=== PATIENT | female | born 1955 | race Asian ===

== ENCOUNTER 2017-06-18 05:59 | Inpatient (IN) | payer OTHER ==
[2017-06-17 11:39] VITALS: BMI 25.4
--- NOTE | 2017-06-17 23:18 | PREOPHP ---
DATE OF ADMISSION: 06/18/2017 HISTORY OF PRESENT ILLNESS: Patient was originally seen in the office and was diagnosed with a left lumbar spine sacral 1 disk herniation, with mechanical low back pain. Conservative management was offered to the patient in the form of lumbar epidural injections x4. Unfortunately, patient did not improve. Patient also saw Pain Management and Physical Therapy. Condition was getting worse. Patient wanted something more definitive to be done. The only option left at this point was surgical intervention in the form of lumbar 5 - sacral 1, left-sided laminotomy, with a microdiscectomy. The procedure was described to the patient in great detail. Complications were explained. Patient agreed, wants to proceed. PAST MEDICAL HISTORY: History of high blood pressure, diabetes, hyperlipidemia. PAST SURGICAL HISTORY: Unremarkable. SOCIAL HISTORY: Denies use of drugs, alcohol or tobacco. ALLERGIES: NONE. MEDICATIONS: Taken at home, which are found in the history, are unremarkable. REVIEW OF SYSTEMS: Additional 10-point review of systems conducted. Pertinent positives in HPI, otherwise negative. PHYSICAL EXAMINATION: GENERAL: Patient is awake, alert, oriented. Follows commands. Moves upper as well as the lower extremities. HEENT: Unremarkable. LUNGS: No dyspnea. No tachypnea. CARDIAC: No JVD. No pedal edema. ABDOMEN: Soft, without guarding. NEUROLOGIC: He is awake, alert, oriented. Follows commands. GCS of 15. EXTREMITIES: Upper extremity examination: Moves both sides equally at the shoulders, elbows, wrists. Lower extremity examination: Flexion and extension of lumbar spine causes low back discomfort. He has positive leg raise on the left side. Strength is equal on both sides. Sensation is intact. LABORATORY: MRI of the lumbar spine shows the lumbar 5 - sacral 1, left-sided disk herniation, with compression of the left L5-S1 nerve roots. RECOMMENDATION: Is for patient to undergo surgical intervention with lumbar 5 - sacral 1 left-sided laminotomy, with microdiscectomy. The procedure, complications were discussed with the patient extensively, including infection, bleeding, permanent nerve damage, stroke, heart attack, and even . Patient was agreeable and wants to proceed. Patient was admitted to the hospital thereafter for further care and management. Dictated By: Sy De La Vega MD /pj/cody /Document#: [id number] CRUZ
[2017-06-18] VITALS (30 sets, daily range): BP systolic 94–131; BP diastolic 49–78; PULSE 68–88; RESP 16–20; Ht 160 cm; Wt 69.1 kg
[~2017-06-18] VITALS: Ht 160 cm; Wt 69.1 kg
[2017-06-18] MEDS ORDERED: GELATIN SIZE 100 SPONGE ONE (06:46)
[2017-06-18] MEDS ORDERED: POLYMYXIN/BACITRACIN 1L IRRIG ONE (06:47)
[2017-06-18] MEDS ORDERED: THROMBIN 5000 UNIT VIAL ONE (06:47)
[2017-06-18] MEDS ORDERED: PROPOFOL 100 ML ONE (06:48)
[2017-06-18] MEDS ORDERED: MIDAZOLAM 1 MG/ML 2 ML INJ ONE (06:48)
[2017-06-18] MEDS ORDERED: PROPOFOL 20 ML ONE (06:48)
[2017-06-18] MEDS ORDERED: FENTAnyl 50 MCG/ML VIAL ONE ×2 (06:48→08:06)
[2017-06-18] MEDS ORDERED: LIDOCAINE 2% (SDV) 5 ML INJ ONE (06:48)
[2017-06-18] MEDS ORDERED: CEFAZOLIN 1 GM INJ ONE (06:52)
[2017-06-18] MEDS ORDERED: ROCURONIUM 50 MG INJ ONE (07:00)
[2017-06-18] MEDS ORDERED: GABA300S PO (07:18)
[2017-06-18] MEDS ORDERED: LANT3I SC (07:18)
[2017-06-18] MEDS ORDERED: TRAM50TA2 PO (07:18)
[2017-06-18] MEDS ORDERED: METF1000 PO (07:18)
[2017-06-18] MEDS ORDERED: ZOC10 PO (07:18)
[2017-06-18] MEDS ORDERED: OMEG-135 PO (07:18)
[2017-06-18] MEDS ORDERED: BENA20TA48 PO (07:18)
[2017-06-18] MEDS ORDERED: [UNRECOGNIZED DRUG - CODE] PO (07:18)
[2017-06-18] MEDS ORDERED: LIDOCAINE 1%/EPI 30 ML INJ ONE (07:28)
[2017-06-18] MEDS ORDERED: LIDOCAINE 0.5% (MDV) 50 ML INJ ONE (07:28)
[2017-06-18] MEDS ORDERED: ONDANSETRON 4 MG INJ IV PRN ×2 (08:00→09:30)
[2017-06-18] MEDS ORDERED: DEXTROSE 5%-LR 1,000 ML IV SCH (08:00)
[2017-06-18] MEDS ORDERED: METOCLOPRAMIDE 10 MG INJ ONE (08:03)
[2017-06-18] MEDS ORDERED: ONDANSETRON 4 MG INJ ONE (08:03)
[2017-06-18] MEDS ORDERED: FAMOTIDINE 20 MG INJ ONE (08:03)
[2017-06-18] MEDS ORDERED: DEXAMETHASONE 4 MG/ML 1 ML INJ ONE (08:03)
[2017-06-18] MEDS ORDERED: SUGAMMADEX SODIUM 200 MG/2 ML VIAL IV ONE (08:31)
[2017-06-18] MEDS ORDERED: KETOROLAC 30 MG INJ ONE (08:33)
--- NOTE | 2017-06-18 08:50 | OPR ---
Date/Time of Note Date/Time of Note DATE: 06/18/17 TIME: 08:46 Operative Report Preoperative Diagnosis left lumbar 5-sacral 1 disk herniation Postoperative Diagnosis left lumbar 5-sacral 1 disk herniation Operation/Procedure Performed left l5-s1 laminotomy with microdiskectomy Surgeon CAROL WALLACE MD [employer] NANCY JONES PAC Anesthesia Type: general Anesthesiologist: JERE ROGERS Estimated Blood Loss: 50 - 100 ml's Transfusion none Specimen YES Grafts/Implants none Complications none Procedure Description LEFT SIDED LUMBAR 5-SACRAL 1 LAMINOTOMY WITH MICRODISKECTOMY CAROL WALLACE MD Jun 18, 2017 08:50
[2017-06-18] MEDS ORDERED: ACETAMINOPHEN 1000MG/100ML IV 100 ML IVPB PRN (09:30)
[2017-06-18] MEDS ORDERED: MEPERIDINE 25 MG INJ IV PRN (09:30)
[2017-06-18] MEDS ORDERED: OXYCODONE/ACETAMINOPHEN (5/325) TAB PO PRN ×2 (09:30)
[2017-06-18] MEDS ORDERED: LABETALOL HCL 20MG INJ IV PRN (09:30)
[2017-06-18] MEDS ORDERED: FENTAnyl 50 MCG/ML VIAL IV PRN ×3 (09:30)
[2017-06-18] MEDS: HYDROCODONE/APAP (10/325) TAB PO PRN ×3 (12:02→22:32)
[2017-06-18] MEDS: CEFAZOLIN 1 GM/50 ML (PMX) 50 ML IVPB SCH ×2 (13:35→22:22)
[2017-06-18] MEDS ORDERED: DEXTROSE 50% 50 ML SYRINGE IV PRN ×2 (14:00)
[2017-06-18] MEDS ORDERED: GLUCAGON 1 MG INJ IM PRN (14:00)
[2017-06-18] MEDS ORDERED: GLUCOSE GEL 15 GRAM TUBE BUCCAL PRN (14:00)
[2017-06-18] MEDS ORDERED: GLUCOSE GEL 15 GRAM TUBE PO PRN ×2 (14:00)
[2017-06-18] MEDS ORDERED: CEPASTAT LOZENGE MT PRN (14:00)
--- NOTE | 2017-06-18 16:51 | RADRPT ---
PROCEDURE: XR fluoro guidance CLINICAL INDICATION: L5-S1 laminectomy with microdiskectomy TECHNIQUE: Fluoroscopy performed. 1 image submitted. Total fluoro time: 4.8 seconds COMPARISON: None. FINDINGS: No hardware/instruments visualized. See operative/procedure report for details. IMPRESSION: Fluoroscopic guidance for lumbar spine surgery. RPTAT: VV .Adiel Salcido MD, MD Date Time Electronically viewed and signed by .Adiel Salcido MD, on 06/18/2017 10:27 .O/
--- NOTE | 2017-06-18 16:55 | HP ---
DATE OF ADMISSION: 06/18/2017 HISTORY OF PRESENT ILLNESS: The patient is a 62-year-old very pleasant female with past medical his tory positive for hypertension, hyperlipidemia, diabetes mellitus and chronic back pain. The patien t has been experiencing lower back pain with radiation to the left lower extremity. On further eval uation, the patient appeared to have left lumbosacral disk herniation and patient was evaluated by Odell De La Vega in neurosurgery consultation. The patient also obtained a clearance from ____ cardio logtaryn for elective neurosurgery and patient was brought to the hospital and underwent a left L5-S1 la minotomy with microdiscectomy by Dr. De La Vega. The patient experienced moderate pain and complaints of ____. Patient denies any chest pain, denies any nausea, vomiting, diarrhea. Patient is admitted for further evaluation and management. PAST MEDICAL HISTORY: Positive for diabetes, hypertension, hyperlipidemia and chronic back pain. PAST SURGICAL HISTORY: Patient had a right upper extremity I and D of the abscess 1 year ago. FAMILY HISTORY: Patient had a mother with diabetes mellitus. SOCIAL HISTORY: Patient lives at home with her and family. The patient denies any tobacco use, denies any alcohol use, denies any illicit drug use. ALLERGIES: NO KNOWN ALLERGIES. HOME MEDICATIONS: 1. Benazepril. 2. Lantus. 3. Metformin. 4. Tramadol. 5. Acetaminophen. 6. Gabapentin. 7. [place] 3 fatty acid fish oil. 8. Simvastatin. REVIEW OF SYSTEMS: A 12-point review of systems is negative unless what mentioned in the HPI. PHYSICAL ASSESSMENT: GENERAL: Well-developed, well-nourished female in no acute distress. VITAL SIGNS: Temperature 98.6, pulse is 70, blood pressure 118/62, respiratory rate 20, oxygen satu ration 97% on 2 liters nasal cannula. HEENT: Head is atraumatic, normocephalic. Pupils equal, round, reactive to light and accommodation . Oral mucosa is pink and moist. NECK: Supple, no cervical lymphadenopathy, no thyromegaly. CHEST: Lungs clear bilaterally. There are no rhonchi, wheezes, rales noted. CARDIOVASCULAR: Normal S1, S2. No murmurs, gallops, clicks, rubs noted. ABDOMEN: Round, soft, nondistended, nontender. There is no guarding, no rebound tenderness. EXTREMITIES: No edema, clubbing, cyanosis. Pulses equal bilaterally 2+. Low back status post surg faith. SKIN: No apparent rash, petechiae noted. NEUROLOGIC: Patient is awake, alert and oriented x4. No focal deficits noted. Motor strength 5/5 in all extremities. PRESURGERY LABORATORY DATA: Reviewed. ASSESSMENT AND PLAN: 1. Acute on chronic back pain with radiation to left lower extremity with left lumbosacral disk her niation status post left L5-S1 laminotomy with microdiscectomy by Dr. De La Vega on 06/18/2017. 2. Continue postoperative antibiotics. Continue [place] and morphine p.r.n. for pain and Zofran p.r. n. for nausea. 3. Diabetes mellitus type 2. Continue NovoLog per mild algorithm sliding scale 1800 ADA 2 g sodium , low fat diet. Continue Lantus. 4. Hypertension. Continue lisinopril. Hydralazine p.r.n. for systolic blood pressure above 170. 5. Hyperlipidemia. We will resume statin. 6. Continue sequential compression device for deep venous thrombosis prophylaxis. Pepcid for pepti c ulcer disease prophylaxis. Follow up neurosurgery recommendations. Further recommendations based on clinical course. Plan of care discussed with Dr. Poole. Dictated By: MARJ FUNEZ [employer] for VERNON POOLE MD SR/NTS Conf#: [id number] DID#: [id number]
[2017-06-18] MEDS: LACTATED RINGER'S 1,000 ML IV SCH (17:50)
[2017-06-18] MEDS: INSULIN ASPART [NOVOLOG] 3 ML PEN SC SCH ×2 (17:51→20:34)
[2017-06-18] MEDS ORDERED: LACTATED RINGER'S 1,000 ML IV SCH (20:00)
[2017-06-18] MEDS: BENAZEPRIL 20 MG TAB PO SCH (20:26)
[2017-06-18] MEDS ORDERED: INSULIN GLARGINE [LANtus] 3 ML PEN SC SCH (21:00)
[2017-06-19] MEDS: ACCU-CHEK XX SCH (01:51)
[2017-06-19 02:30] VITALS: BP 104/51; RESP 20
[2017-06-19] MEDS: LACTATED RINGER'S 1,000 ML IV SCH ×3 (03:29→21:11)
[2017-06-19 03:34] VITALS: BP 100/52; PULSE 77; RESP 20
[2017-06-19] MEDS: HYDROCODONE/APAP (10/325) TAB PO PRN ×4 (03:47→21:07)
[2017-06-19] MEDS: CEFAZOLIN 1 GM/50 ML (PMX) 50 ML IVPB SCH ×2 (05:34→14:00)
[2017-06-19 06:30] LABS: BASOPHILS % 0.1 % (0.0-2.0); EOSINOPHILS % 0.1 % (0.0-7.0); HEMATOCRIT 32.9 % (37.0-47.0); HEMOGLOBIN 10.5 g/dl (12.0-16.0); LYMPHOCYTES # 4.6 10^3/ul (0.8-2.9); LYMPHOCYTES % 31.9 % (15.0-51.0); MEAN CORPUSCULAR HEMOGLOBIN 25.9 pg (29.0-33.0); MEAN CORPUSCULAR HGB CONC 31.9 g/dl (32.0-37.0); MEAN CORPUSCULAR VOLUME 81.2 fl (82.0-101.0); MONOCYTES % 6.9 % (0.0-11.0); NEUTROPHIL # 8.7 10^3/ul (1.6-7.5); NEUTROPHILS % 60.7 % (39.0-77.0); PLATELET COUNT 300 10^3/UL (140-415); RED BLOOD COUNT 4.05 10^6/ul (4.20-5.40); RED CELL DISTRIBUTION WIDTH 13.3 % (11.5-14.5); WHITE BLOOD COUNT 14.3 10^3/ul (4.8-10.8)
[2017-06-19 07:07] LABS: CALCIUM 8.9 mg/dl (8.4-10.2); CREATININE 0.67 mg/dl (0.44-1.00)
[2017-06-19 07:50] VITALS: BP 109/57; RESP 18
[2017-06-19] MEDS: INSULIN ASPART [NOVOLOG] 3 ML PEN SC SCH ×4 (07:50→21:00)
[2017-06-19] MEDS: BENAZEPRIL 20 MG TAB PO SCH ×2 (09:08→21:00)
--- NOTE | 2017-06-19 15:34 | PN ---
Date/Time of Note Date/Time of Note DATE: 06/19/17 TIME: 15:31 Assessment/Plan VTE Prophylaxis VTE Prophylaxis Intervention: SCD's Lines/Catheters IV Catheter Type (from Nrsg): Peripheral IV Urinary Cath still in place: No Reason Cath still needed: urinary retention Assessment/Plan Chief Complaint/Hosp Course Patient's pain is well controlled, patient remains hemodynamically stable Problems: Assessment/Plan - Acute on chronic back pain with radiation to left lower extremity with left lumbosacral disk herniation status post left L5-S1 laminotomy with microdiscectomy by Dr. De La Vega on 06/18/2017. Continue [place] and morphine p.r.n. for pain and Zofran p.r.n. for nausea. - Diabetes mellitus type 2. Will adjust Lantus and pre-meal now NovoLog . - Hypertension. Continue lisinopril. Hydralazine p.r.n. for systolic blood pressure above 170. - Hyperlipidemia. Further recommendations based on clinical course. Plan of care discussed with Dr. Martinez. Exam/Review of Systems Vital Signs Vitals Vital Signs Date Time Temp Pulse Resp B/P Pulse Ox O2 Delivery O2 Flow Rate FiO2 06/19/17 07:50 98.1 87 18 109/57 99 06/19/17 03:34 Nasal Cannula 2.0 Intake and Output 06/18/17 06/18/17 06/19/17 14:59 22:59 06:59 Intake Total 750 ml 1090 ml 1250 ml Output Total 120 ml 1400 ml Balance 630 ml -310 ml 1250 ml Exam Constitutional: alert, oriented Neck: supple Respiratory: normal air movement Cardiovascular: nl pulses Gastrointestinal: non-tender, soft Musculoskeletal: nl extremities to inspection, other (Status post low back surgery) Extremities: normal pulses Results Result Diagram: 06/19/17 0508 06/19/17 0508 Results 24 hrs Laboratory Tests Test 06/18/17 17:49 06/18/17 20:29 06/19/17 05:08 06/19/17 07:37 Bedside Glucose 97 103 108 White Blood Count 14.3 H Red Blood Count 4.05 L Hemoglobin 10.5 L Hematocrit 32.9 L Mean Corpuscular Volume 81.2 L Mean Corpuscular Hemoglobin 25.9 L Mean Corpuscular Hemoglobin Concent 31.9 L Red Cell Distribution Width 13.3 Platelet Count 300 Mean Platelet Volume 11.0 H Neutrophils % 60.7 Lymphocytes % 31.9 Monocytes % 6.9 Eosinophils % 0.1 Basophils % 0.1 Nucleated Red Blood Cells % 0.0 Neutrophils # 8.7 H Lymphocytes # 4.6 H Monocytes # 1.0 H Eosinophils # 0.0 Basophils # 0.0 Nucleated Red Blood Cells # 0.0 Sodium Level 136 Potassium Level 4.0 Chloride Level 100 Carbon Dioxide Level 30 Anion Gap 10 Blood Urea Nitrogen 13 Creatinine 0.67 Glucose Level 45 *L Calcium Level 8.9 Test 06/19/17 09:07 06/19/17 11:29 06/19/17 12:11 06/19/17 13:06 Bedside Glucose 92 62 L 77 84 Medications Medications Current Medications Morphine Sulfate (morphine) 2 mg Q4H PRN IV severe pain; Start 06/18/17 at 08: 00 Acetaminophen/ Hydrocodone Bitart ([place] (10/325)) 1 tab Q4H PRN PO PAIN Last administered on 06/19/17 15:03; Admin Dose 1 TAB; Start 06/18/17 at 08:00 Ondansetron HCl (Zofran Inj) 4 mg Q6H PRN IV NAUSEA AND/OR VOMITING; Start at 08:00 Phenol (Cepastat Lozenge) 1 lozenge Q1H PRN MT SORE THROAT Last administered on 06/18/17 20:45; Admin Dose 1 LOZENGE; Start 06/18/17 at 14:00 Benazepril HCl (Lotensin) 20 mg BID PO Last administered on 06/19/17 09:08; Admin Dose 20 MG; Start 06/18/17 at 21:00 Insulin Glargine (Lantus) 52 unit QHS SC Last administered on 06/18/17 20:34 ; Admin Dose 52 UNIT; Start 06/18/17 at 21:00 Diagnostic Test (Pha) (Accu-Chek) 1 ea 02 XX ; Start 06/19/17 at 02:00 Miscellaneous Information 1 ea NOTE XX ; Start 06/18/17 at 14:00 Glucose (Glutose) 15 gm Q15M PRN PO DECREASED GLUCOSE; Start 06/18/17 at 14:00 Glucose (Glutose) 22.5 gm Q15M PRN PO DECREASED GLUCOSE; Start 06/18/17 at 14: 00 Dextrose (D50w Syringe) 25 ml Q15M PRN IV DECREASED GLUCOSE; Start 06/18/17 at 14:00 Dextrose (D50w Syringe) 50 ml Q15M PRN IV DECREASED GLUCOSE; Start 06/18/17 at 14:00 Glucagon (Glucagen) 1 mg Q15M PRN IM DECREASED GLUCOSE; Start 06/18/17 at 14: 00 Glucose 15 gm 15 gm Q15M PRN BUCCAL DECREASED GLUCOSE; Start 06/18/17 at 14:00 Lactated Ringer's (Lr) 1,000 ml @ 100 mls/hr Q10H IV Last administered on 03:29; Admin Dose 100 MLS/HR; Start 06/18/17 at 16:50 MARJ FUNEZ Jun 19, 2017 15:34
--- NOTE | 2017-06-19 15:42 | CONS ---
Date/Time of Note Date/Time of Note DATE: 06/19/17 TIME: 15:39 Assessment/Plan Assessment/Plan Additional Assessment/Plan awake/alert/follows/moves all left l5/s1 laminotomy with microdiskectomy good post op progress wound looks good pt/ot pt may go home in am instructions given Consultation Date/Type/Reason Admit Date/Time Jun 18, 2017 at 05:59 Initial Consult Date Exam/Review of Systems Vital Signs Vitals Vital Signs Date Time Temp Pulse Resp B/P Pulse Ox O2 Delivery O2 Flow Rate FiO2 06/19/17 07:50 98.1 87 18 109/57 99 06/19/17 03:34 Nasal Cannula 2.0 Intake and Output 06/18/17 06/18/17 06/19/17 15:00 23:00 07:00 Intake Total 750 ml 1090 ml 1250 ml Output Total 120 ml 1400 ml Balance 630 ml -310 ml 1250 ml Results Result Diagram: 06/19/17 0508 06/19/17 0508 Results 24 hrs Laboratory Tests Test 06/18/17 17:49 06/18/17 20:29 06/19/17 05:08 06/19/17 07:37 Bedside Glucose 97 103 108 White Blood Count 14.3 H Red Blood Count 4.05 L Hemoglobin 10.5 L Hematocrit 32.9 L Mean Corpuscular Volume 81.2 L Mean Corpuscular Hemoglobin 25.9 L Mean Corpuscular Hemoglobin Concent 31.9 L Red Cell Distribution Width 13.3 Platelet Count 300 Mean Platelet Volume 11.0 H Neutrophils % 60.7 Lymphocytes % 31.9 Monocytes % 6.9 Eosinophils % 0.1 Basophils % 0.1 Nucleated Red Blood Cells % 0.0 Neutrophils # 8.7 H Lymphocytes # 4.6 H Monocytes # 1.0 H Eosinophils # 0.0 Basophils # 0.0 Nucleated Red Blood Cells # 0.0 Sodium Level 136 Potassium Level 4.0 Chloride Level 100 Carbon Dioxide Level 30 Anion Gap 10 Blood Urea Nitrogen 13 Creatinine 0.67 Glucose Level 45 *L Calcium Level 8.9 Test 06/19/17 09:07 06/19/17 11:29 06/19/17 12:11 06/19/17 13:06 Bedside Glucose 92 62 L 77 84 Medications Medications Current Medications Morphine Sulfate (morphine) 2 mg Q4H PRN IV severe pain; Start 06/18/17 at 08: 00 Acetaminophen/ Hydrocodone Bitart ([place] (10/)) 1 tab Q4H PRN PO PAIN Last administered on 06/19/17 15:03; Admin Dose 1 TAB; Start 06/18/17 at 08:00 Ondansetron HCl (Zofran Inj) 4 mg Q6H PRN IV NAUSEA AND/OR VOMITING; Start at 08:00 Phenol (Cepastat Lozenge) 1 lozenge Q1H PRN MT SORE THROAT Last administered on 06/18/17 20:45; Admin Dose 1 LOZENGE; Start 06/18/17 at 14:00 Benazepril HCl (Lotensin) 20 mg BID PO Last administered on 06/19/17 09:08; Admin Dose 20 MG; Start 06/18/17 at 21:00 Diagnostic Test (Pha) (Accu-Chek) 1 ea 02 XX ; Start 06/19/17 at 02:00 Miscellaneous Information 1 ea NOTE XX ; Start 06/18/17 at 14:00 Glucose (Glutose) 15 gm Q15M PRN PO DECREASED GLUCOSE; Start 06/18/17 at 14:00 Glucose (Glutose) 22.5 gm Q15M PRN PO DECREASED GLUCOSE; Start 06/18/17 at 14: 00 Dextrose (D50w Syringe) 25 ml Q15M PRN IV DECREASED GLUCOSE; Start 06/18/17 at 14:00 Dextrose (D50w Syringe) 50 ml Q15M PRN IV DECREASED GLUCOSE; Start 06/18/17 at 14:00 Glucagon (Glucagen) 1 mg Q15M PRN IM DECREASED GLUCOSE; Start 06/18/17 at 14: 00 Glucose 15 gm 15 gm Q15M PRN BUCCAL DECREASED GLUCOSE; Start 06/18/17 at 14:00 Lactated Ringer's (Lr) 1,000 ml @ 100 mls/hr Q10H IV Last administered on 03:29; Admin Dose 100 MLS/HR; Start 06/18/17 at 16:50 Linagliptin (Tradjenta) 5 mg DAILY PO ; Start 06/19/17 at 16:00 Insulin Glargine (Lantus) 17 unit QHS SC ; Start 06/19/17 at 21:00 NANCY JONES PA-C Jun 19, 2017 15:42
[2017-06-19] MEDS: LINAGLIPTIN 5 MG TABLET PO SCH (16:00)
[2017-06-19] MEDS ORDERED: SOD CHLORIDE 0.9% 1,000 ML IV ONE (16:30)
[2017-06-19 19:55] VITALS: BP 112/55; RESP 18
[2017-06-19] MEDS ORDERED: INSULIN GLARGINE [LANtus] 3 ML PEN SC SCH (21:00)
[2017-06-19] MEDS: CYCLOBENZAPRINE 10 MG TAB PO SCH (21:10)
[2017-06-20 01:45] VITALS: BP 149/58; RESP 18
[2017-06-20] MEDS: ACCU-CHEK XX SCH (02:00)
[2017-06-20] MEDS: morphine 2 MG INJ IV PRN ×4 (02:15→20:27)
[2017-06-20 05:30] LABS: BASOPHILS % 0.2 % (0.0-2.0); EOSINOPHILS % 0.2 % (0.0-7.0); HEMATOCRIT 33.1 % (37.0-47.0); HEMOGLOBIN 10.5 g/dl (12.0-16.0); LYMPHOCYTES # 2.8 10^3/ul (0.8-2.9); MEAN CORPUSCULAR HEMOGLOBIN 26.1 pg (29.0-33.0); MEAN CORPUSCULAR HGB CONC 31.7 g/dl (32.0-37.0); MEAN CORPUSCULAR VOLUME 82.1 fl (82.0-101.0); MEAN PLATELET VOLUME 10.7 fl (7.4-10.4); MONOCYTES % 8.7 % (0.0-11.0); NEUTROPHIL # 7.4 10^3/ul (1.6-7.5); NEUTROPHILS % 65.5 % (39.0-77.0); PLATELET COUNT 268 10^3/UL (140-415); RED BLOOD COUNT 4.03 10^6/ul (4.20-5.40); RED CELL DISTRIBUTION WIDTH 13.5 % (11.5-14.5); WHITE BLOOD COUNT 11.3 10^3/ul (4.8-10.8)
[2017-06-20 06:05] LABS: CREATININE 0.62 mg/dl (0.44-1.00)
[2017-06-20] MEDS: LACTATED RINGER'S 1,000 ML IV SCH ×2 (07:55→18:01)
[2017-06-20 08:10] VITALS: BP 117/56; RESP 18
[2017-06-20] MEDS: LINAGLIPTIN 5 MG TABLET PO SCH ×2 (09:00→11:14)
[2017-06-20] MEDS: INSULIN ASPART [NOVOLOG] 3 ML PEN SC SCH ×4 (09:30→20:42)
[2017-06-20] MEDS: CYCLOBENZAPRINE 10 MG TAB PO SCH ×3 (09:45→20:23)
[2017-06-20] MEDS: BENAZEPRIL 20 MG TAB PO SCH ×2 (09:47→20:24)
--- NOTE | 2017-06-20 13:34 | PN ---
Date/Time of Note Date/Time of Note DATE: 06/20/17 TIME: 13:18 Assessment/Plan VTE Prophylaxis VTE Prophylaxis Intervention: other Lines/Catheters IV Catheter Type (from Nrsg): Peripheral IV Urinary Cath still in place: No Assessment/Plan Assessment/Plan - Acute on chronic back pain with radiation to left lower extremity with left lumbosacral disk herniation status post left L5-S1 laminotomy with microdiscectomy on 06/18/2017. - per Dr. De La Vega - Continue [place] and morphine p.r.n. for pain and Zofran p.r.n. for nausea. - Diabetes mellitus type 2. Will adjust Lantus and pre-meal now NovoLog . - Hypertension. Continue lisinopril. Hydralazine p.r.n. for systolic blood pressure above 170. - Hyperlipidemia. Further recommendations based on clinical course. Plan of care discussed with Dr. Martinez. Subjective 24 Hr Interval Summary Free Text/Dictation -BS dropped last nigt, stable now - slightly febrile -c/o back pain, refusing for norco - tolerating diet Respiratory: no complaints Cardiovascular: no complaints Gastrointestinal: no complaints Genitourinary: no complaints Musculoskeletal: back pain Neurologic: no complaints Exam/Review of Systems Vital Signs Vitals Vital Signs Date Time Temp Pulse Resp B/P Pulse Ox O2 Delivery O2 Flow Rate FiO2 06/20/17 08:10 99.6 89 18 117/56 98 06/19/17 03:34 Nasal Cannula 2.0 Intake and Output 06/19/17 06/19/17 06/20/17 15:00 23:00 07:00 Intake Total 500 ml 2600 ml Output Total 2000 ml 2600 ml Balance -1500 ml 0 ml Exam Constitutional: alert, well developed Respiratory: clear to auscultation, diminished breath sounds Cardiovascular: nl pulses Gastrointestinal: non-tender, soft Musculoskeletal: range of motion Extremities: normal pulses Results Result Diagram: 06/20/17 0447 06/20/17 0447 Results 24 hrs Laboratory Tests Test 06/19/17 16:05 06/19/17 17:52 06/19/17 21:14 06/20/17 04:47 Bedside Glucose 139 83 88 White Blood Count 11.3 #H Red Blood Count 4.03 L Hemoglobin 10.5 L Hematocrit 33.1 L Mean Corpuscular Volume 82.1 Mean Corpuscular Hemoglobin 26.1 L Mean Corpuscular Hemoglobin Concent 31.7 L Red Cell Distribution Width 13.5 Platelet Count 268 Mean Platelet Volume 10.7 H Neutrophils % 65.5 Lymphocytes % 25.0 Monocytes % 8.7 Eosinophils % 0.2 Basophils % 0.2 Nucleated Red Blood Cells % 0.0 Neutrophils # 7.4 Lymphocytes # 2.8 Monocytes # 1.0 H Eosinophils # 0.0 Basophils # 0.0 Nucleated Red Blood Cells # 0.0 Sodium Level 136 Potassium Level 4.0 Chloride Level 99 Carbon Dioxide Level 29 Anion Gap 12 Blood Urea Nitrogen 9 Creatinine 0.62 Glucose Level 45 *L Calcium Level 9.0 Test 06/20/17 06:28 06/20/17 06:44 06/20/17 06:59 06/20/17 09:16 Bedside Glucose 49 *L 104 173 101 Test 06/20/17 13:16 Bedside Glucose 91 Medications Medications Current Medications Morphine Sulfate (morphine) 2 mg Q4H PRN IV severe pain Last administered on 07:45; Admin Dose 2 MG; Start 06/18/17 at 08:00 Acetaminophen/ Hydrocodone Bitart ([place] (10/325)) 1 tab Q4H PRN PO PAIN Last administered on 06/19/17 21:07; Admin Dose 1 TAB; Start 06/18/17 at 08:00 Ondansetron HCl (Zofran Inj) 4 mg Q6H PRN IV NAUSEA AND/OR VOMITING; Start at 08:00 Phenol (Cepastat Lozenge) 1 lozenge Q1H PRN MT SORE THROAT Last administered on 06/18/17 20:45; Admin Dose 1 LOZENGE; Start 06/18/17 at 14:00 Benazepril HCl (Lotensin) 20 mg BID PO Last administered on 06/20/17 09:47; Admin Dose 20 MG; Start 06/18/17 at 21:00 Diagnostic Test (Pha) (Accu-Chek) 1 ea 02 XX ; Start 06/19/17 at 02:00 Miscellaneous Information 1 ea NOTE XX ; Start 06/18/17 at 14:00 Glucose (Glutose) 15 gm Q15M PRN PO DECREASED GLUCOSE; Start 06/18/17 at 14:00 Glucose (Glutose) 22.5 gm Q15M PRN PO DECREASED GLUCOSE; Start 06/18/17 at 14: 00 Dextrose (D50w Syringe) 25 ml Q15M PRN IV DECREASED GLUCOSE; Start 06/18/17 at 14:00 Dextrose (D50w Syringe) 50 ml Q15M PRN IV DECREASED GLUCOSE; Start 06/18/17 at 14:00 Glucagon (Glucagen) 1 mg Q15M PRN IM DECREASED GLUCOSE; Start 06/18/17 at 14: 00 Glucose 15 gm 15 gm Q15M PRN BUCCAL DECREASED GLUCOSE; Start 06/18/17 at 14:00 Lactated Ringer's (Lr) 1,000 ml @ 100 mls/hr Q10H IV Last administered on 07:55; Admin Dose 100 MLS/HR; Start 06/18/17 at 16:50 Linagliptin (Tradjenta) 5 mg DAILY PO Last administered on 06/20/17 11:14; Admin Dose 5 MG; Start 06/19/17 at 16:00 Cyclobenzaprine HCl (Flexeril) 10 mg TID PO Last administered on 06/20/17 13: 14; Admin Dose 10 MG; Start 06/19/17 at 21:00 Insulin Glargine (Lantus) 10 unit QHS SC ; Start 06/20/17 at 21:00 DESIRAE ARREDONDO Jun 20, 2017 13:30
[2017-06-20 13:49] VITALS: BP 112/56; RESP 18
[2017-06-20 19:55] VITALS: BP 112/53; RESP 18
[2017-06-20] MEDS: SENNA TAB PO SCH ×2 (20:23→21:00)
[2017-06-20] MEDS ORDERED: SENNA TAB PO SCH (20:30)
[2017-06-20] MEDS ORDERED: INSULIN GLARGINE [LANtus] 3 ML PEN SC SCH (21:00)
[2017-06-20] MEDS: HYDROCODONE/APAP (10/325) TAB PO PRN (23:01)
[2017-06-21] MEDS: ACCU-CHEK XX SCH (02:00)
[2017-06-21 02:10] VITALS: BP 102/53; RESP 18
[2017-06-21] MEDS: LACTATED RINGER'S 1,000 ML IV SCH ×2 (04:50→14:50)
[2017-06-21 05:45] LABS: BASOPHILS % 0.5 % (0.0-2.0); EOSINOPHILS # 0.2 10^3/ul (0.0-0.5); EOSINOPHILS % 1.9 % (0.0-7.0); LYMPHOCYTES # 2.9 10^3/ul (0.8-2.9); LYMPHOCYTES % 37.4 % (15.0-51.0); MEAN CORPUSCULAR HEMOGLOBIN 26.3 pg (29.0-33.0); MEAN CORPUSCULAR HGB CONC 32.3 g/dl (32.0-37.0); MEAN CORPUSCULAR VOLUME 81.6 fl (82.0-101.0); MEAN PLATELET VOLUME 10.7 fl (7.4-10.4); MONOCYTE # 0.7 10^3/ul (0.3-0.9); MONOCYTES % 9.5 % (0.0-11.0); NEUTROPHILS % 50.6 % (39.0-77.0); PLATELET COUNT 247 10^3/UL (140-415); RED CELL DISTRIBUTION WIDTH 13.5 % (11.5-14.5); WHITE BLOOD COUNT 7.8 10^3/ul (4.8-10.8)
[2017-06-21 06:49] LABS: CALCIUM 9.2 mg/dl (8.4-10.2); CREATININE 0.67 mg/dl (0.44-1.00); POTASSIUM 4.3 mmol/L (3.5-5.1)
[2017-06-21] MEDS: INSULIN ASPART [NOVOLOG] 3 ML PEN SC SCH ×3 (07:50→17:36)
[2017-06-21] MEDS: CYCLOBENZAPRINE 10 MG TAB PO SCH ×2 (08:49→12:23)
[2017-06-21] MEDS: LINAGLIPTIN 5 MG TABLET PO SCH (08:49)
[2017-06-21] MEDS: morphine 2 MG INJ IV PRN ×2 (08:50→18:52)
[2017-06-21] MEDS: SENNA TAB PO SCH (08:50)
[2017-06-21 08:52] VITALS: BP 109/56; RESP 18
[2017-06-21] MEDS: BENAZEPRIL 20 MG TAB PO SCH (08:55)
[2017-06-21 15:38] VITALS: BP 111/55; RESP 18
--- NOTE | 2017-06-21 16:18 | DS ---
Date/Time of Note Date/Time of Note DATE: 06/21/17 TIME: 16:17 Discharge Summary Admission/Discharge Info Admit Date/Time Jun 18, 2017 at 05:59 Discharge Date/Time Discharge Diagnosis - Acute on chronic back pain with radiation to left lower extremity with left lumbosacral disk herniation status post left L5-S1 laminotomy with microdiscectomy on 06/18/2017. - per Dr. De La Vega - Continue [place] and morphine p.r.n. for pain and Zofran p.r.n. for nausea. - Diabetes mellitus type 2. Will adjust Lantus and pre-meal now NovoLog . - Hypertension. Continue lisinopril. Hydralazine p.r.n. for systolic blood pressure above 170. - Hyperlipidemia. Further recommendations based on clinical course. Plan of care discussed with Dr. Martinez. Home Meds Reported Medications Insulin Glargine* (Lantus*) 100 Unit/Ml Soln, 52 UNIT SC QHS, #1 VIAL 06/18/17 Tramadol HCl (Tramadol HCl) 50 Mg Tablet, 50 MG PO DAILY, #60 TAB 06/18/17 Acetaminophen (MAPAP) 500 Mg/15 Ml Liquid, 500 MG PO Q6 06/18/17 [place]-3 Fatty Acids/Fish Oil (Fish Oil 1,000 mg Capsule) 1 Each Capsule, 1000 EACH PO, CAP 06/18/17 Simvastatin (Simvastatin) 10 Mg Tablet, 10 MG PO DAILY, #30 TAB 06/18/17 Gabapentin (GABAPENTIN) 300 Mg/6 Ml Solution, 300 MG PO 06/18/17 Benazepril Hcl* (Benazepril Hcl*) 20 Mg Tablet, 20 MG PO BID, #60 TAB 06/18/17 Metformin Hcl* (Metformin Hcl*) 1,000 Mg Tablet, 1000 MG PO WITH BREAKFAST, #30 TAB 06/18/17 Primary Care Provider Todd Cerna Pending Labs Laboratory Tests Test 06/20/17 17:56 06/20/17 20:27 06/20/17 23:58 06/21/17 01:58 Bedside Glucose 162mg/dL (70-220) 269mg/dL (70-220) 101mg/dL (70-220) 86mg/dL (70-220) Test 06/21/17 04:56 06/21/17 04:57 06/21/17 07:36 06/21/17 12:14 Sodium Level 136mmol/L (135-144) Potassium Level 4.3mmol/L (3.5-5.1) Chloride Level 98mmol/L (97-110) Carbon Dioxide Level 32mmol/L (21-31) Anion Gap 10 (8-16) Blood Urea Nitrogen 11mg/dl (7-20) Creatinine 0.67mg/dl (0.44-1.00) Glucose Level 98mg/dl (70-220) Calcium Level 9.2mg/dl (8.4-10.2) White Blood Count 7.810^3/ul (4.8-10.8) Red Blood Count 3.8010^6/ul (4.20-5.40) Hemoglobin 10.0g/dl (12.0-16.0) Hematocrit 31.0% (37.0-47.0) Mean Corpuscular Volume 81.6fl (82.0-101.0) Mean Corpuscular Hemoglobin 26.3pg (29.0-33.0) Mean Corpuscular Hemoglobin Concent 32.3g/dl (32.0-37.0) Red Cell Distribution Width 13.5% (11.5-14.5) Platelet Count 64236^3/UL (140-415) Mean Platelet Volume 10.7fl (7.4-10.4) Neutrophils % 50.6% (39.0-77.0) Lymphocytes % 37.4% (15.0-51.0) Monocytes % 9.5% (0.0-11.0) Eosinophils % 1.9% (0.0-7.0) Basophils % 0.5% (0.0-2.0) Nucleated Red Blood Cells % 0.0/100WBC (0.0-0.0) Neutrophils # 4.010^3/ul (1.6-7.5) Lymphocytes # 2.910^3/ul (0.8-2.9) Monocytes # 0.710^3/ul (0.3-0.9) Eosinophils # 0.210^3/ul (0.0-0.5) Basophils # 0.010^3/ul (0.0-0.1) Nucleated Red Blood Cells # 0.010^3/ul (0.0-0.0) Bedside Glucose 83mg/dL (70-220) 157mg/dL (70-220) DESIRAE ARREDONDO Jun 21, 2017 16:18
--- NOTE | 2017-06-21 16:20 | PDOCDIS ---
Discharge Instructions DIAGNOSIS Discharge Diagnosis - Acute on chronic back pain with radiation to left lower extremity with left lumbosacral disk herniation status post left L5-S1 laminotomy with microdiscectomy on 06/18/2017. - per Dr. De La Vega - Continue [place] and morphine p.r.n. for pain and Zofran p.r.n. for nausea. - Diabetes mellitus type 2. Will adjust Lantus and pre-meal now NovoLog . - Hypertension. Continue lisinopril. Hydralazine p.r.n. for systolic blood pressure above 170. - Hyperlipidemia. Further recommendations based on clinical course. Plan of care discussed with Dr. Martinez. CONDITION Patient Condition: Stable HOME CARE INSTRUCTIONS: Special Diet: new admit ACTIVITY: Activity Restrictions: Slowly Increase Activity Rest between Activity Avoid heavy lifting Do not Drive Do not operate Machinery Do not operate Power Tool Avoid Heavy Housework FOLLOW UP/APPOINTMENTS Follow-up Plan Follow up with Primary MD X 1 WEEK FU with neurosurgery as recommended Call 911 or go to the nearest hospital if symptoms get worse Patient verbalized understanding DC instructions. Dw Dr Martinez/staff DESIRAE ARREDONDO Jun 21, 2017 16:20
[2017-06-21] MEDS ORDERED: LINA5TAB PO (16:26)
[2017-06-21] MEDS ORDERED: SENN-53 PO (16:26)
[2017-06-21] MEDS ORDERED: CYCL-319 PO (16:26)
[2017-06-21] MEDS ORDERED: BENZ1LOZ4 MT (16:26)
[2017-06-21] MEDS ORDERED: Hydrocodone/Apap (10/325) PO (16:26)
[2017-06-21] MEDS ORDERED: LANT3I SC (16:26)
[2017-06-21] MEDS ORDERED: HYDR-906 PO (16:45)
--- NOTE | 2017-06-21 20:24 | OPR ---
DATE OF OPERATION: 06/18/2017 PREOPERATIVE DIAGNOSIS: Left-sided lumbar 5 sacral 1 disk herniation with severe radiculopathy, for aminal disk herniation with subligamentous portion of disk causing spinal canal compression and neur al foraminal compression with lumbar radiculopathy. POSTOPERATIVE DIAGNOSIS: Left-sided lumbar 5 sacral 1 disk herniation with severe radiculopathy, fo raminal disk herniation with subligamentous portion of disk causing spinal canal compression and gorge ral foraminal compression with lumbar radiculopathy. PROCEDURE: 1. Left L5 parapedicular laminotomy/foraminotomy/medial facetectomy, CPT 12507. 2. Left S1 laminotomy, foraminotomy, medial fasciotomy, parapedicular, CPT 60044. 3. Microdiskectomy lumbar spine utilizing operative microscope magnification, CPT 58640. SURGEON FOR THE OPERATION: Carol De La Vega MD [employer] INSTRUCTOR: CECILY Saeed COMPLICATIONS OF THE OPERATION: None. ANESTHESIA: General endotracheal. ESTIMATED BLOOD LOSS: Less than 100. NEEDLE COUNTS AND SPONGE COUNTS: Correct. SPECIMENS: Multiple fragments sent to pathology. INDICATION FOR OPERATION: The patient is well known to me. The patient is Fadia Gonzáles, is approx imately a 62-year-old right-handed female with a chief complaint of low back pain and leg pain with radiation of pain to the left lower extremity. She has been tried on epidural steroid injections wi thout any relief of the pain. She is having a considerable amount of low back pain and leg pain wit h radiation of pain to the left lower extremity, to the point that she is unable to walk. Patient w as consented, taken to the operating room for the above procedure. Risks and benefits of anesthesia , infection, bleeding, permanent neurological injury and were explained. The patient agreed t o proceed with the operation and signed the consent. DESCRIPTION OF PROCEDURE: The patient was placed in supine position. After adequate general endotr acheal anesthesia was obtained, the patient was turned prone on vertical bolsters. Lumbar region wa s clipped, prepped and dressed in normal sterile fashion, infiltrated with lidocaine with epinephrin e solution. Midline incision was made with a #10 blade, was carried to the left side of midline at the L5-S1. Lamina of L5 and the lamina of S1 on the left side, along with the interspace was identi fied utilizing fluoroscopy. Operative microscope was brought into the field. The inferior portion of the lamina of L5 and super ior portion of the lamina of S1 was identified until I was able to identify the pedicle of L5, pedic le of S1. The nerve root of S1 was identified and it was noted that there was a large disk herniation in the a xilla of the nerve root of S1. Gentle intraaxillary dissection was done until I was able to separat e the root from the fragment of disk that was severely scarred down. I was able to retract ov er the fragment of disk. Following that, a #15 blade was utilized in order to open up the annulus a nd was able to get inside the disk space, removed the large fragment that was herniating in the axil la of the S1 root. Following that, I removed the nucleus that was very soft and necrotic. Following that, the inferior migration of disk that was subligamentous was addressed. We opened a p ortion of the posterior longitudinal ligament. I was able to retrieve the fragments from under the ligament. The area was irrigated with bacitracin saline solution. Closure of the wound was at that time started with #1 Vicryl for the lumbodorsal fascia, 2-0 and 3-0 Vicryl for subcutaneous tissue and dermis with Steri-Strips for the skin. The patient tolerated the procedure well, was taken to p ostanesthesia recovery in stable condition, following commands, moving all muscle groups of the uppe r and lower extremities. Spinal monitoring showed improvement of signal. Dictated By: CAROL ANDERSON/JASBIR Conf#: [id number] DID#: [id number] CC: NANCY TONY;*EndCC*
== END 2017-06-21 19:20 | disposition home or self-care (01) | DRG 520 ==
LOC: REC 05:59 → MS1 10:26
PROVIDERS: ADMIT Neurological Surgery; ATTEND Neurological Surgery
PROC: 0SB40ZZ Excision of Lumbosacral Disc, Open Approach (ICD-10-PCS; principal; 2017-06-18 07:30)
DX: M51.17 Intervertebral disc disorders with radiculopathy, lumbosacral region (principal); I10 Essential (primary) hypertension; E11.9 Type 2 diabetes mellitus without complications; E78.5 Hyperlipidemia, unspecified; Z79.4 Long term (current) use of insulin
CPT/HCPCS: 72100; 80048; 82962; 83036; 85025; 86850; 86900; 86901; 88304; 97110; 97116; 97162; 97530; J0690; J1100; J1815; J1885; J2250; J2270; J2405; J2765; J3010; J7030; J7120; J7121

== ENCOUNTER 2017-06-26 14:01 | Outpatient (CLI) | END 2017-06-26 16:18 | disposition home or self-care (01) ==

== ENCOUNTER 2017-07-10 13:55 | Outpatient (CLI) | END 2017-07-10 16:40 | disposition home or self-care (01) ==